=== PATIENT | male | born 1975 | race Caucasian/White ===

== ENCOUNTER 2016-10-17 20:33 | Emergency (ER) | payer MEDICARE ==
[2016-10-17] MEDS ORDERED: MORPHINE IV ONE (21:16)
[2016-10-17] MEDS ORDERED: ZOFRAN IV ONE ×2 (21:16→21:36)
[2016-10-17 21:19] LABS: Basophils % (Auto) 1.1 % (0.0-1.8); Eosinophils % (Auto) 2.8 % (0.0-4.3); Hematocrit 41.3 % (35.5-45.6); Hemoglobin 13.9 gm/dl (11.8-15.2); Mean Corpuscular HGB Conc 34 % (32-34); Mean Corpuscular Hemoglobin 30 pg (28-32); Mean Corpuscular Volume 89 fl (84-94); Platelet Count 204 K/mm3 (140-440); Red Blood Count 4.62 M/mm3 (3.65-5.03); Red Cell Distribution Width 13.5 % (13.2-15.2); White Blood Count 9.9 K/mm3 (4.5-11.0)
[2016-10-17] MEDS ORDERED: NACL ONE (21:36)
[2016-10-17] MEDS ORDERED: DILAUDID IV ONE (21:36)
[2016-10-17] MEDS ORDERED: NACL 0.9% 1000 ML 1,000 ML IV ONE (21:36)
[2016-10-17] MEDS ORDERED: APRESOLINE IV ONE ×2 (21:37→23:11)
--- NOTE | 2016-10-17 21:43 | Emergency Department Report ---
HPI - General Chief Complaint: Abdominal Pain Time Seen by Provider: 10/17/16 20:47 - HPI HPI: The patient is a 41-year-old male who presents for evaluation of abdominal pain. The patient reports abdominal pain for the past one week, on and off, concentrated to the right lower abdomen, stabbing in quality, 10 out of 10 in severity, nonradiating to the right flank. He also reports nausea, multiple episodes of nonbilious, nonbloody emesis, and darkening of the urine. The patient denies trauma to the abdomen or flank, fever, diarrhea, blood in the stool, dark tarry stool, genital discharge, inability to pass flatus. ED Past Medical Hx - Past Medical History Hx Hypertension: Yes Hx Diabetes: Yes - Surgical History Past Surgical History?: Yes Additional Surgical History: Back surgery x 4 - Social History Smoking Status: Current Every Day Smoker Substance Use Type: None - Medications Home Medications: Home Medications Medication Instructions Recorded Confirmed Last Taken Type Lisinopril [Zestril TAB] 40 mg PO BID 04/20/15 10/17/16 04/20/15 History metFORMIN [Glucophage] 500 mg PO BID 04/20/15 10/17/16 04/20/15 History HYDROcodone/APAP 7.5-325 [[place] 1 each PO Q8HR PRN #10 tablet 10/18/16 Unknown Rx 7.5-325 mg TAB] Ondansetron [Zofran TAB] 4 mg PO Q8HR PRN #14 tablet 10/18/16 Unknown Rx ED Review of Systems ROS: Stated complaint: ABDOMINAL PAIN Other details as noted in HPI Constitutional: denies: fever ENT: denies: throat or neck pain Respiratory: denies: cough, shortness of breath Cardiovascular: denies: chest pain Endocrine: denies unexplained weight loss or gain Gastrointestinal: reports abdominal pain, nausea Genitourinary: denies: dysuria Musculoskeletal: denies: leg swelling Skin: denies: rash Neurological: denies: headache Hematological/Lymphatic: denies: easy bleeding or easy bruising Psych: denies sadness or hopelessness Physical Exam - Physical Exam Vital Signs: Vital Signs 10/17/16 10/17/16 20:55 21:24 Temperature 98.2 F Pulse Rate 81 Respiratory 18 18 Rate Blood Pressure 183/110 O2 Sat by Pulse 99 Oximetry Physical Exam: General: well-nourished, well-developed, no acute distress Head: Normocephalic, atraumatic Eyes: normal sclera ENT: Mucous membranes are pale and dry Neck: trachea midline, neck supple, No neck stiffness, no cervical adenopathy Respiratory: Breath sounds equal bilaterally, no wheezing, rales, or rhonchi Cardio: S1 and S2 present, no murmurs, rubs, gallops, capillary refill is delayed Abdomen: Normoactive bowel sounds, soft abdomen, RLQ ab pain present, no rigidity, no guarding or rebound tenderness Chest WALL/Back: rt CVA tenderness with percussion present Musc: No pitting edema Skin: No rash Neuro: no facial drooping, normal speech Psych: Normal affect ED Course Vital Signs 10/17/16 10/17/16 20:55 21:24 Temperature 98.2 F Pulse Rate 81 Respiratory 18 18 Rate Blood Pressure 183/110 O2 Sat by Pulse 99 Oximetry ED Medical Decision Making - Lab Data Result diagrams: 10/17/16 21:04 10/17/16 21:09 - Medical Decision Making The patient was seen and examined by myself. The patient is placed on a pie filling mixer and continuous pulse ox. On initial evaluation, the patient was found to be in no distress. Evaluation orders are placed. IV access is established and the patient is given 1 L normal saline fluid bolus for treatment of dehydration, and Zofran for nausea, and IV Dilaudid for pain. He was given multiple doses of IV hydralazine and labetalol for elevated blood pressure. Lab results were non-concerning including WBC, hemoglobin, hematocrit , electrolytes, renal function, LFTs, lipase, and urinalysis. CT scan of the abdomen and pelvis with IV contrast is negative for appendicitis , bowel perforation, or other acute emergent disease process. The patient was reevaluated and reported that their symptoms were markedly improved. The patient is stable for discharge with outpatient follow-up. The patient is given follow-up and return instructions. The patient expressed understanding and agreed with the plan. The patient is discharged in stable condition. - Differential Diagnosis bowel perf, appendicitis, colitis, GB stones/inf, ureterolithaisis Critical care attestation.: If time is entered above; I have spent that time in minutes in the direct care of this critically ill patient, excluding procedure time. ED Disposition Clinical Impression: Acute abdominal pain in right lower quadrant, Asymptomatic hypertensive urgency , Dehydration Cholelithiasis Qualifiers: Cholelithiasis location: gallbladder Cholecystitis presence: without cholecystitis Biliary obstruction: without biliary obstruction Qualified Code(s) : K80.20 - Calculus of gallbladder without cholecystitis without obstruction Disposition: DISCHARGED TO HOME OR SELFCARE Is pt being admited?: No Does the pt Need Aspirin: No Condition: Stable Instructions: Hypertension (ED), Acute Abdominal Pain (ED) Prescriptions: HYDROcodone/APAP 7.5-325 [[place] 7.5-325 mg TAB] 1 each PO Q8HR PRN #10 tablet PRN Reason: Pain Ondansetron [Zofran TAB] 4 mg PO Q8HR PRN #14 tablet PRN Reason: Nausea Referrals: PRIMARY CARE, [Primary Care Provider] - 3-5 Days Time of Disposition: 12:16
[2016-10-17 21:44] LABS: Alanine Aminotransferase 12 units/L (7-56); Albumin 4.1 g/dL (3.9-5); Albumin/Globulin Ratio 1.4 %; Alkaline Phosphatase 47 units/L (35-129); Anion Gap 18 mmol/L; BUN/Creatinine Ratio 16.66; Bilirubin,Total 0.3 mg/dL (0.1-1.2); Blood Urea Nitrogen 15 mg/dL (9-20); Calcium 8.9 mg/dL (8.4-10.2); Carbon Dioxide 24 mmol/L (22-30); Chloride 100.4 mmol/L (98-107); Glucose 82 mg/dL (75-100); Lipase 15 units/L (13-60); Potassium 3.8 mmol/L (3.6-5.0); Sodium 139 mmol/L (137-145)
[2016-10-17] MEDS ORDERED: VALIUM IV ONE (22:47)
--- NOTE | 2016-10-17 23:35 | Cat Scan Report ---
FINAL REPORT PROCEDURE: CT HEAD/BRAIN WO CON TECHNIQUE: Computerized tomography of the head was performed without contrast material. HISTORY: headache left sided waekness COMPARISON: No prior studies are available for comparison. FINDINGS: Skull and scalp: Normal. Paranasal sinuses: Normal. Ventricles and subarachnoid spaces: Normal. Cerebrum: No evidence of hemorrhage, acute infarction or mass . Cerebellum and brainstem: No evidence of hemorrhage, acute infarction or mass. Vasculature: Normal. Comments: None. IMPRESSION: Normal Examination
--- NOTE | 2016-10-18 00:14 | Cat Scan Report ---
FINAL REPORT PROCEDURE: CT ABDOMEN PELVIS W CON TECHNIQUE: Computerized axial tomography of the abdomen and pelvis was performed after the IV injection of iodinated nonionic contrast. HISTORY: RLQ abdominal pain COMPARISON: No prior studies are available for comparison. FINDINGS: Visualized lower thorax: No significant abnormality. Liver: Normal size and attenuation. Spleen: Normal size and attenuation. Gallbladder and biliary system: There are gallstones. There is no specific evidence of cholecystitis or biliary ductal dilatation.. Pancreas: Normal. Adrenals: Normal. Kidneys: There is cysts in the right kidney. There are no kidney stones. There is no hydronephrosis.. GI tract: There is no bowel obstruction, colitis or enteritis. The appendix is normal.. Lymph nodes and mesentery: Normal. Vasculature: Normal. Bladder: Normal. Reproductive organs: Normal. Peritoneum: There is no ascites, free air, abscess or adenopathy.. Musculoskeletal structures: No significant abnormality. Other: None. IMPRESSION: There are gallstones. There is no specific evidence of cholecystitis or biliary ductal dilatation.. There is cysts in the right kidney. There are no kidney stones. There is no hydronephrosis.. There is no bowel obstruction, colitis or enteritis. The appendix is normal.. There is no ascites, free air, abscess or adenopathy..
--- NOTE | 2016-10-18 00:55 | Admit Criteria Form ---
Admission Criteria Documentation: ABDOMINAL PAIN Clinical Indications for Admission to Inpatient Care (Place 'X' for any and all applicable criteria): Admission is indicated for ANY ONE of the following(1)(2)(3)(4)(5): [X ]I. Inpatient admission required rather than observation care (Also use Abdominal Pain: Observation Care, as appropriate) because of ANY ONE of the following: [ X]a) Severe pain requiring acute inpatient management [ ]b) Identification of etiology/finding that requires inpatient care (eg, aortic dissection, free air) [ ]c) Absent bowel sounds with complete ileus(6) [ ]d) Suspected toxic megacolon [ ]e) Severe electrolyte abnormalities requiring inpatient care [ ]f) High fever or infection requiring inpatient admission as indicated by ANY ONE of following(7)(8): [ ] i) Appropriate outpatient or observational care antimicrobial treatment unavailable, not effective, or not feasible [ ] ii) Documented bacteremia [ ] iii) Temperature > 104.9 degrees F (oral) [ ] iv) T >103.1 F (oral) or < 96.8 F(rectal) that does not respond to all emergency treatment measures [ ]g) Signs of intestinal obstruction [B] [ ]h) Hemodynamic instability [ ]i) IV fluid to replace significant ongoing losses (greater than 3 L/m2 per day) (12)(13) [ ]j) Percutaneous or open drainage (eg, abscess, biliary tract ) procedures [ ]k) Parenteral nutrition regimen that must be implemented on inpatient basis [ ]l) Other condition,treatment or monitoring requiring inpatient admission. [ ]II. Peritoneal signs present [ ]III. Surgery needed that cannot be performed on an ambulatory basis. [ ]IV. Evaluation requires patient to not eat or drink for extended period ( eg, more than 24 hours). [ ]V. Contraindications and/or Inappropriate clinical situations for Observational Care in patients with abdominal pain, when ANY ONE of the following is required: [ ]a) Thorough evaluation is required to prevent catastrophic events due to delays in diagnosing (e.g.Mesenteric ischemia) 1,3 [ ]b) Patient with severe pathology or with chronic symptoms unlikely to improve in the ED stay (3) [ ]. General contraindications and/or Inappropriate clinical situations for Observational Care in patients with abdominal pain, when ANY ONE of the following is required: [ ]a) Prediction of prolongation of LOS based on ANY ONE of the following may be considered as a contraindication for observational care 2, 3, 4, 5, 6, 7, 8, 9, 10, 11 [ ]i) Age > 65 yrs. [ ]ii) Patient arriving by ambulance [ ]iii) Patient with high acuity [ ]iv) Patient requiring vital sign monitoring [ ]v) Patient on IV medication [ ]b) Systolic blood pressures 180mmHg 3,12 [ ]c) Patient with altered mental status including delirium and other alteration of consciousness, (3) [ ]d) Patient whose discharge disposition will be to a correction home or rehabilitation home should not be managed in Emergency Department Observation Unit. CMS rule requires 3 days hospital stay before such placement.3,13 [ ]e) Patient with failure to thrive due to broad array of etiologies 3,16,17 [ ]f) Inability to ambulate 3,14 Extended stay beyond goal length of stay may be needed for(2)(3): [ ]a) Persistent abdominal pain with suspected intra-abdominal process [ ]b) Diagnosed condition requiring continued stay (e.g., pancreatitis, complicated diverticulitis) [ ]c) Surgery (e.g., colectomy) The original [facility] content created by [employer] has been revised. The portions of the content which have been revised are identified through the use of italic text or in bold, and [email or web address] has neither reviewed nor approved the modified material.All other unmodified content is copyright [facility]. Please see references footnoted in the original [employer] [facility] edition 2016 Admission Criteria Met: Yes
[2016-10-18] MEDS ORDERED: NORMODYNE IV ONE ×2 (01:03→01:32)
[2016-10-18 01:52] LABS: Bilirubin,Urine NEG (Negative); Blood,Urine NEG (Negative); Ketones,Urine TR mg/dL (Negative); Leukocyte Esterase,Urine NEG (Negative); Mucus,Urine 1+ /HPF; Nitrite,Urine NEG (Negative); Protein,Urine <15 mg/dL mg/dL (Negative); Urobilinogen,Urine < 2.0 mg/dL (<2.0)
[2016-10-18] MEDS ORDERED: NITROSTAT SL ONE (02:12)
[2016-10-18 03:00] VITALS: BP 166/96
== END 2016-10-18 03:02 | disposition home or self-care (01) ==
LOC: ED 20:33
DX: K80.20 Calculus of gallbladder without cholecystitis without obstruction (principal); I10 Essential (primary) hypertension; E86.0 Dehydration; E11.9 Type 2 diabetes mellitus without complications; F17.200 Nicotine dependence, unspecified, uncomplicated
CPT/HCPCS: 36415; 70450; 74177; 80053; 81001; 82140; 82962; 83690; 85025; 96361; 96374; 96375; 96376; 99285; J0360; J1170; J2270; J2405; J3360; J7030; Q9967

== ENCOUNTER 2017-02-15 23:02 | Emergency (ER) | payer MEDICARE ==
[2017-02-15] MEDS ORDERED: ZOFRAN ODT ONE (23:39)
[2017-02-15] MEDS ORDERED: CATAPRES ONE (23:40)
[2017-02-15] MEDS ORDERED: ZOFRAN ODT PO ONE (23:43)
[2017-02-15] MEDS ORDERED: CATAPRES PO ONE (23:43)
[2017-02-16 00:29] LABS: Hemoglobin 13.8 gm/dl (11.8-15.2); Mean Corpuscular HGB Conc 34 % (32-34); Mean Corpuscular Hemoglobin 31 pg (28-32); Mean Corpuscular Volume 92 fl (84-94); Platelet Count 227 K/mm3 (140-440); Red Blood Count 4.48 M/mm3 (3.65-5.03); Red Cell Distribution Width 13.8 % (13.2-15.2); White Blood Count 10.6 K/mm3 (4.5-11.0)
[2017-02-16 00:34] LABS: Anion Gap 19 mmol/L; Blood Urea Nitrogen 12 mg/dL (9-20); Calcium 9.1 mg/dL (8.4-10.2); Carbon Dioxide 24 mmol/L (22-30); Chloride 101.7 mmol/L (98-107); Glucose 107 mg/dL (75-100); Potassium 3.7 mmol/L (3.6-5.0); Sodium 141 mmol/L (137-145)
--- NOTE | 2017-02-16 00:39 | Cat Scan Report ---
FINAL REPORT EXAM: CT HEAD/BRAIN WO CON HISTORY: HTN, Dizzy, Blurred vision, N V COMPARISON: None available. TECHNIQUE: Axial images obtained skull base through vertex. FINDINGS: No acute intracranial hemorrhage, midline shift or pathologic extra axial fluid collection. Ventricles and cisterns are normal in size and configuration for the patient's age. Ontiveros-white differentiation preserved. Calvarium grossly intact. Orbits are grossly unremarkable. Small retention cyst or polyp in the left maxillary sinus. Visualized mastoid air cells are clear. IMPRESSION: No grossly acute intracranial abnormality.
[2017-02-16 00:40] LABS: INR 1.23 (0.87-1.13)
[2017-02-16 00:41] LABS: Partial Thromboplastin Time 30.9 Sec. (24.2-36.6)
[2017-02-16 02:10] VITALS: BP 184/116
--- NOTE | 2017-02-16 03:03 | XRay Report ---
FINAL REPORT EXAM: XR CHEST ROUTINE 2V HISTORY: Shortness of breath COMPARISON: None available. FINDINGS:: Frontal and lateral views of the chest obtained. Cardiac silhouette is within normal limits. No focal consolidation or effusion. No pneumothorax. Visualized bony thorax is grossly intact. IMPRESSION:: No acute findings.
--- NOTE | 2017-02-17 01:02 | ED Elopement Review ---
ED Pt Elopement review - Results review Lab results: Laboratory Tests 02/15/17 02/15/17 02/15/17 23:50 23:50 23:50 WBC 10.6 RBC 4.48 Hgb 13.8 Hct 41.0 MCV 92 MCH 31 MCHC 34 RDW 13.8 Plt Count 227 Lymph % (Auto) 32.0 Mchenry % (Auto) 5.8 Eos % (Auto) 4.0 Baso % (Auto) 1.0 Lymph # 3.4 Mchenry # 0.6 Eos # 0.4 Baso # 0.1 Seg Neutrophils % 57.2 Seg Neutrophils # 6.1 PT 15.4 H INR 1.23 H APTT 30.9 Sodium 141 Potassium 3.7 Chloride 101.7 Carbon Dioxide 24 Anion Gap 19 BUN 12 Creatinine 1.0 Estimated GFR > 60 BUN/Creatinine Ratio 12.00 Glucose 107 H Calcium 9.1 Troponin T < 0.010 - Call Back decision Pt Call Back Decision: Call pt to return to ED [facility]ES (chest pain with history of diabetes and hypertension may require further/inpatient evaluation)
== END 2017-02-16 02:36 | disposition left against medical advice (07) ==
LOC: ED 23:02
DX: I10 Essential (primary) hypertension (principal); R51 Headache; R42 Dizziness and giddiness; H53.8 Other visual disturbances; R07.81 Pleurodynia; R11.2 Nausea with vomiting, unspecified; R06.02 Shortness of breath; R61 Generalized hyperhidrosis; R05 Cough; Z53.21 Procedure and treatment not carried out due to patient leaving prior to being seen by health care provider
CPT/HCPCS: 36415; 70450; 71020; 80048; 84484; 85025; 85610; 85730; 93005; 93010; Q0162

== ENCOUNTER 2019-09-02 08:26 | Outpatient (CLI) | payer MEDICARE ==
--- NOTE | 2019-09-02 09:46 | Magnetic Resonance Report ---
MRI RIGHT SHOULDER WITHOUT CONTRAST INDICATION: RIGHT SHOULDER PAIN/WEAKNESS. COMPARISON: None available. TECHNIQUE: Multisequence, multiplanar images were obtained. FINDINGS: SUPRASPINATUS: There is a small less than 50% partial thickness intrasubstance tear at the mid footpl ate insertion measuring about 3 mm area there is no significant interval retraction of muscle atrophy . INFRASPINATUS: No significant abnormality. SUBSCAPULARIS: No significant abnormality. BICEPS TENDON, LONG HEAD: No significant abnormality. GLENOID LABRUM: No significant abnormality. ARTICULAR CARTILAGE: No significant abnormality. JOINT SPACE AND CAPSULE: No significant abnormality. ACROMIOCLAVICULAR JOINT: There is mild AC joint DJD without significant supraspinatus encroachment. SUBACROMIAL/SUBDELTOID SPACE: No significant abnormality. BONES: No bone marrow edema. No fracture. No osseous lesion. SOFT TISSUES: No acute findings. ADDITIONAL FINDINGS: None. IMPRESSION: 1. Small low-grade partial thickness intrasubstance rim rent tear of the mid supraspinatus tendon at the foot plate insertion without significant tendon retraction or muscle atrophy. 2. Mild AC joint DJD. Signer Name: Melchor Bradford MD Signed: 09/02/2019 9:42 AM Workstation Name: [id number]
== END 2019-09-02 08:27 | disposition home or self-care (01) ==
LOC: MRI 08:26
PROVIDERS: ATTEND Physical Medicine & Rehabilitation Pain Medicine
DX: M19.011 Primary osteoarthritis, right shoulder (principal); R29.898 Other symptoms and signs involving the musculoskeletal system